=== PATIENT | male | born 1945 | race Caucasian/White ===

== ENCOUNTER → 2018-01-01 | Outpatient (CLI) | payer MEDICARE ==
--- NOTE | 2018-01-01 13:22 | MR ---
EXAMINATION TYPE: MR cervical spine wo con DATE OF EXAM: 01/01/2018 COMPARISON: None HISTORY: cervical disc prolapse TECHNIQUE: Multiplanar, multisequence images of the cervical spine were acquired. C2-C3: No evidence for degenerative disc disease. No disc bulge/herniation or protrusion. No Canal stenosis. Foramina are patent bilaterally. C3-C4: No evidence for degenerative disc disease. No disc bulge/herniation or protrusion. No Canal stenosis. Foramina are patent bilaterally. C4-C5: Loss of disc signal and space. There is uncovertebral joint hypertrophy bilaterally. Very mini mal central disc bulging and facet arthropathy greater on the right. Mild bilateral foraminal encroac hment. No Canal stenosis C5-C6: Degenerative disc disease with posterior spondylosis and uncovertebral joint hypertrophy with facet arthropathy. Bilateral mild foraminal encroachment greater on the left. No discrete herniation or canal stenosis. C6-C7: Degenerative disc disease with uncovertebral joint hypertrophy and facet arthropathy. Mild mansoor tral disc bulging but no canal stenosis. No spinal cord contact. C7-T1: No evidence for degenerative disc disease. No disc bulge/herniation or protrusion. No Canal stenosis. Foramina are patent bilaterally. Cervical segments are intact. There is normal alignment. Cervical spinal cord is of normal signal. Craniovertebral junction relationships are within normal limits. IMPRESSION: 1. Multilevel degenerative disc disease, cervical spondylosis with facet arthropathy and hypertrophy of the uncovertebral joints. This results in multilevel mild foraminal encroachment as discussed abov e with no discrete disc herniation or canal stenosis. 2. Minimal disc bulging as discussed above.
== END | disposition home or self-care (01) ==
LOC: RADMRIMAIN 12:36
PROVIDERS: ATTEND Specialist
DX: M50.221 Other cervical disc displacement at C4-C5 level (principal); M50.322 Other cervical disc degeneration at C5-C6 level; M47.812 Spondylosis without myelopathy or radiculopathy, cervical region; M46.92 Unspecified inflammatory spondylopathy, cervical region
CPT/HCPCS: 72141

== ENCOUNTER 2018-03-28 14:05 | Emergency (ER) | payer MEDICARE ==
[2018-03-28 15:59] VITALS: RESP 18; TEMP 98.3
[2018-03-28 17:20] VITALS: BP 154/77; PULSE 106
--- NOTE | 2018-03-28 17:30 | ED ---
General Adult HPI - General Chief complaint: Recheck/Abnormal Lab/Rx Stated complaint: Chronic body pain, usually goes to pain clinic Time Seen by Provider: 03/28/18 17:17 Source: patient, RN notes reviewed Mode of arrival: ambulatory Limitations: no limitations - History of Present Illness Initial comments: Patient is a 72 year old male with complaint of chronic pain and requesting a refill on [place]. Denies any fever or chills, nausea or vomiting, chest pain, shortness of breath, abdominal pain, headache or visual changes, or any other complaints. - Related Data Home Medications Medication Instructions Recorded Confirmed amLODIPine BESYLATE [Norvasc] 10 mg PO DAILY 11/04/13 08/02/14 Atorvastatin [Lipitor] 20 mg PO DAILY 04/01/14 08/02/14 Diazepam 10 mg PO Q4-6H PRN 04/01/14 08/02/14 Loratadine-Pseudoeph 10-240 mg 1 each PO DAILY 08/02/14 08/02/14 [Claritin-D 24 Hr] Previous Rx's Medication Instructions Recorded Hydrocodone/Acetaminophen 1 each PO Q6H #20 tablet 11/04/13 [Hydrocodone/Acetaminophen 10-325] Ibuprofen [Motrin] 800 mg PO Q8HR PRN #30 tab 08/02/14 Allergies Allergy/AdvReac Type Severity Reaction Status Date / Time No Known Allergies Allergy Verified 03/28/18 15:59 Review of Systems ROS Statement: Those systems with pertinent positive or pertinent negative responses have been documented in the HPI. ROS Other: All systems not noted in ROS Statement are negative. Past Medical History Past Medical History: Hyperlipidemia, Hypertension, Osteoarthritis (OA) Additional Past Medical History / Comment(s): chronic pain, LEFT KNEE INFECTION History of Any Multi-Drug Resistant Organisms: None Reported Past Surgical History: Back Surgery Additional Past Surgical History / Comment(s): RIGHT RIB REMOVED, nose surgery Past Psychological History: No Psychological Hx Reported Smoking Status: Never smoker Past Alcohol Use History: None Reported Past Drug Use History: None Reported General Exam Limitations: no limitations General appearance: alert, in no apparent distress Head exam: Present: atraumatic, normocephalic Eye exam: Present: normal appearance Respiratory exam: Present: normal lung sounds bilaterally Cardiovascular Exam: Present: regular rate, normal rhythm Neurological exam: Present: alert, oriented X3, normal gait Psychiatric exam: Present: normal affect, normal mood Course Vital Signs 03/28/18 03/28/18 15:57 17:00 Temperature 98.3 F Pulse Rate 116 H 106 H Respiratory 18 18 Rate Blood Pressure 156/85 154/77 O2 Sat by Pulse 96 96 Oximetry Medical Decision Making - Medical Decision Making Patient was instructed to follow up with his PCP or a pain clinic for his pain medication. Case discussed in detail with attending physician Dr. Dias. Disposition Clinical Impression: Encounter for medication refill Disposition: HOME SELF-CARE Condition: Good Instructions: Medicine Refill (ED) Additional Instructions: Please follow up with your PCP or pain clinic for refill of your chronic pain medication. Return to the ER with any concerns. Is patient prescribed a controlled substance at d/c from ED?: No Referrals: Justin Toure MD [Primary Care Provider] - 1-2 days Time of Disposition: 17:30
== END 2018-03-28 17:38 | disposition home or self-care (01) ==
LOC: EC 14:05
DX: Z76.0 Encounter for issue of repeat prescription (principal); G89.29 Other chronic pain; E78.5 Hyperlipidemia, unspecified; I10 Essential (primary) hypertension; Z79.899 Other long term (current) drug therapy
CPT/HCPCS: 99283

== ENCOUNTER 2018-03-30 10:14 | Emergency (ER) | payer MEDICARE ==
[2018-03-30 10:19] VITALS: BP 111/66; PULSE 88; RESP 20; TEMP 97.9
[2018-03-30] MEDS ORDERED: DEXAMETHASONE SOD PHOSPHATE 10 MG/ML 1 ML VIAL IM STA (10:38)
--- NOTE | 2018-03-30 10:43 | ED ---
General Adult HPI - General Chief complaint: Weakness Stated complaint: Can't walk/pain all over Time Seen by Provider: 03/30/18 10:20 Source: patient, RN notes reviewed, old records reviewed Mode of arrival: wheelchair Limitations: no limitations - History of Present Illness Initial comments: 72-year-old male presenting for medication refill, chronic pain. Patient has pain bilateral shoulders, neck, bilateral hips and knees. Since is unchanged from baseline. No recent trauma. No fever or chills. Patient was previously prescribed [place] 10 mg 3 times daily, this prescription ran out 6 weeks ago. He was also receiving physical therapy and the location where he was receiving this therapy has closed down. He's been completely out of pain medications for 6 weeks. He did attempt to contact his primary care physician was not in the office today. Patient states the previously steroid injections has significantly helped his pain. No change to her chronic baseline. - Related Data Home Medications Medication Instructions Recorded Confirmed Diazepam 10 mg PO BID 04/01/14 03/30/18 Atorvastatin [Lipitor] 40 mg PO HS 03/30/18 03/30/18 Citalopram Hydrobromide [CeleXA] 40 mg PO DAILY 03/30/18 03/30/18 Hydrocodone/Acetaminophen 1 tab PO Q6H PRN 03/30/18 03/30/18 [Hydrocodone/Acetaminophen 10-325] Lisinopril 40 mg PO DAILY 03/30/18 03/30/18 Previous Rx's Medication Instructions Recorded HYDROcodone/APAP 5-325MG [[place] 1 tab PO Q6HR PRN #12 tab 03/30/18 5-325] Allergies Allergy/AdvReac Type Severity Reaction Status Date / Time No Known Allergies Allergy Verified 03/30/18 10:28 Review of Systems ROS Statement: Those systems with pertinent positive or pertinent negative responses have been documented in the HPI. ROS Other: All systems not noted in ROS Statement are negative. Past Medical History Past Medical History: Hyperlipidemia, Hypertension, Osteoarthritis (OA) Additional Past Medical History / Comment(s): chronic pain, LEFT KNEE INFECTION History of Any Multi-Drug Resistant Organisms: None Reported Past Surgical History: Back Surgery Additional Past Surgical History / Comment(s): RIGHT RIB REMOVED, nose surgery Past Psychological History: No Psychological Hx Reported Smoking Status: Never smoker Past Alcohol Use History: None Reported Past Drug Use History: None Reported General Exam Limitations: no limitations General appearance: alert, in no apparent distress Head exam: Present: atraumatic, normocephalic Eye exam: Present: normal appearance, PERRL, EOMI ENT exam: Present: normal exam, mucous membranes moist Neck exam: Present: normal inspection. Absent: tenderness, meningismus Respiratory exam: Present: normal lung sounds bilaterally. Absent: respiratory distress, wheezes Cardiovascular Exam: Present: regular rate, normal rhythm GI/Abdominal exam: Present: soft. Absent: distended, tenderness Extremities exam: Present: normal inspection, normal capillary refill. Absent: pedal edema Neurological exam: Present: alert, oriented X3, CN II-XII intact. Absent: motor sensory deficit Psychiatric exam: Present: normal affect, normal mood Skin exam: Present: warm, dry, intact. Absent: cyanosis, diaphoretic Course Vital Signs 03/30/18 10:17 Temperature 97.9 F Pulse Rate 88 Respiratory 20 Rate Blood Pressure 111/66 O2 Sat by Pulse 98 Oximetry Medical Decision Making - Medical Decision Making 72-year-old presenting with chronic pain complaints, no injuries, no changes to baseline. Patient requesting steroid shot and he fell to his 10 mg [place] as. I will not refill 10 mg [place] as as I do not know this patient, will give him 3 days of 5 mg [place] as which she will have to make last until he can follow with his primary care physician. Disposition Clinical Impression: Encounter for medication refill, Chronic pain Disposition: HOME SELF-CARE Condition: Good Instructions: Pain Management (ED), Safe Use of Narcotics (ED) Prescriptions: HYDROcodone/APAP 5-325MG [[place] 5-325] 1 tab PO Q6HR PRN #12 tab PRN Reason: Pain Is patient prescribed a controlled substance at d/c from ED?: Yes When asked, does pt state using other controlled substances?: No If prescribed controlled substance>3 days was MAPS reviewed?: Prescribed <3 Days If opioid is for acute pain is fill amount 7 days or less?: Yes If Rx opioid, was Start Talking consent form obtained?: Yes Referrals: Justin Toure MD [Primary Care Provider] - 1-2 days Time of Disposition: 10:42
== END 2018-03-30 10:58 | disposition home or self-care (01) ==
LOC: EC 10:14
DX: G89.29 Other chronic pain (principal); Z76.0 Encounter for issue of repeat prescription; M25.511 Pain in right shoulder; M25.512 Pain in left shoulder; M54.2 Cervicalgia; M25.551 Pain in right hip; M25.552 Pain in left hip; M25.561 Pain in right knee; M25.562 Pain in left knee; E78.5 Hyperlipidemia, unspecified; I10 Essential (primary) hypertension; Z79.899 Other long term (current) drug therapy
CPT/HCPCS: 99285; 96372; J1100

== ENCOUNTER → 2018-04-05 | Outpatient (CLI) | payer MEDICARE ==
[2018-04-05 14:08] VITALS: BP 109/76; PULSE 105; RESP 16
--- NOTE | 2018-04-05 15:13 | P.PAINCN ---
History of Present Illness - Reason for Consult Consult date: 04/05/18 - History of Present Illness This is 72 years old male with a chronic history of severe neck pain and low back pain, and he had bilateral knee pain, patient being managed at different pain clinic but the pain clinic was shutdown, patient was getting pain medication [place] 10/325 every 8 hours, and he was getting injection in his neck and low back, and he was able to function, [facility], but since he stopped taking his pain medication he feels his pain is severe localized in the neck area radiated to the upper extremity and he has severe low back pain, currently he is ambulating without difficulty, because of the intensity of the pain, he denies any fever or night sweats, he denies any change in the bowel movement or urination, intensity of the pain 8/10 increased to 10 over 10 Past Medical History Past Medical History: Hyperlipidemia, Hypertension, Osteoarthritis (OA) Additional Past Medical History / Comment(s): chronic pain, LEFT KNEE INFECTION History of Any Multi-Drug Resistant Organisms: None Reported Past Surgical History: Back Surgery Additional Past Surgical History / Comment(s): RIGHT RIB REMOVED, nose surgery Past Psychological History: No Psychological Hx Reported Smoking Status: Never smoker Past Alcohol Use History: None Reported Past Drug Use History: None Reported Medications and Allergies Home Medications Medication Instructions Recorded Confirmed Type Diazepam 10 mg PO TID 04/01/14 04/05/18 History Atorvastatin [Lipitor] 40 mg PO HS 03/30/18 04/05/18 History Citalopram Hydrobromide [CeleXA] 40 mg PO DAILY 03/30/18 04/05/18 History HYDROcodone/APAP 5-325MG [[place] 1 tab PO Q6HR PRN #12 tab 03/30/18 04/05/18 Rx 5-325] Hydrocodone/Acetaminophen 1 tab PO Q6H PRN 03/30/18 04/05/18 History [Hydrocodone/Acetaminophen 10-325] Lisinopril 40 mg PO DAILY 03/30/18 04/05/18 History Allergies Allergy/AdvReac Type Severity Reaction Status Date / Time No Known Allergies Allergy Verified 04/05/18 13:54 Physical Exam Vitals: Vital Signs Pulse Resp BP Pulse Ox 04/05/18 13:58 105 H 16 109/76 105 H Intake and Output 04/05/18 04/05/18 04/05/18 06:59 14:59 22:59 Other: Weight 73.936 kg Social history : not smoker , NO ETOH , NO Illegal drugs use . Review of Systems : 1- Constitutional : no chills , no fever , no night sweats , 2- Ears : no ear discharge , no change in hearing 3-Nose, Mouth ,Throat ; no bleeding gums, no sore throat , no epistaxis , 4-Cardiovascular : Denies chest pain, , no orthopnea , no palpitation 5-Respiratory : Denies cough , no dyspnea , no hemoptysis 6-Gastrointestinal :, no change in bowel habits , no coffee- ground emesis . 7-Genitourinary : No hematuria , no discharge , no incontinence, 8-Musculoskeletal : No gait dysfunction , report low back pain , neck pain and bilateral knee pain , 9- Neurological : no ataxia , no tremor , no sezure , 10-Psychatric , no suicidal ideation no hallucination 11- Endocrine : no cold intolerence , no polyuria , no polydypsia , 12-Hematologic : no easy bleeding , no easy brusing , 13-Allergic / immunology : no angioedema , no wheezing ,no allergic rhinitis 14-Integumentary : no brttle nails , no change hair / nails , no foot/leg ulcers . Physical Examinations : 1-Constitutional : Cooperative , not in acute distress . 2-HEENT : nech ; supple , no Lymphadenopathy , no Thyromegaly , :eyes , no icterus, no photophobia . ENT : , normal oropharynx , no Thrush 3- Respiratory : Chest clear to auscultations Bilaterally , no wheezing 4- Cardiovascular : regular rate and rhythem , S1 , S2 , no S3 , no S4. 5- Gastrointestinal: abdomen soft no tenderness , no organomegally . 6- Genitourinary : Defferred . 7-Integumentary : No cellulitis , no ulcers , normal skin turgor , no cyanotic . 8- neurologic : Cranial nerve II to XII intact , no focal neurological deffecit 9-psychatric : alert , oriented X 3 , appropriate affect , intact judgment and insight . 10-Lymphatic : no Lymphadenopathy. 11- musculoskeltal: abnormal gait Cervical Spine motor stregnth in the deltoid and biceps, normal right side , normal Left side motor stregnth biceps and the wrist extensors normal right side ,normal left side . motor stregnth in the triceps muscle . normal Right side , normal Left side deep tendon reflexes normal at the biceps , normal at Brachioradialis , normal at triceps. positive cervical facet loading test . Lumber spine moter stegnth lower extremities ,thigh and legs 5/5 Right side , 5/5 Left side deep tendon reflexes : normal Knee Jerk , normal ankle Jerk positive lumber facet Loading Test Range of motion of the lumbar spine Flexion 30 degrees, extension 10 degrees strait leg raising test , positive at 30 degree Fabere test positive RT ,and positive LT . Flexion-extension of the right knee associated with severe pain . Results Comments: MRI of the cervical spine and she had surgery 56 cervical degenerative disc disease and cervical spondylosis with facet arthropathy. Computed tomography scan of the lumbar spine L1-2 lumbar fusion and lumbar facet arthropathy Assessment and Plan Plan: Assessment and plan=1-chronic severe neck pain secondary to cervical degenerative disc disease , and cervical spondylosis 2-chronic severe low back pain secondary to lumbar spondylosis. 3-right knee arthralgia. The patient will be given prescription for [place] 10/325 twice a day , patient was given prescription refills from pain clinic at [place] but that clinic was shot down, patient given prescription for 1 month and patient will be referred to Dr. Navas for medication management I explained to the patient that our pain clinic is interventional pain clinic ,and we don't do medication management Patient could benefit from cervical epidural steroid injections,DREW Time with Patient: Greater than 30 PQRS Measure Charge Sheet Measure #130: Documentation of Current Meds in Medical Chart: Patient's medications documented in chart Measure #226: Tobacco Use: Screen & Cessation Intervention: Pt not a tobacco user Measure #111: Pneumonia Vaccination: Pneumococcal vaccine NOT administered or previously given Measure #47: Advance Care Plan: Advance care planning discussed & documented, pt chose/unable to give Measure #412: Opioid Treatment Agreement: No documentation of signed opioid treatment agreement Measure #408: Opioid Therapy Follow-up Evaluation: Patient had NO f/u eval minimum every 3 months during opioid therapy Measure #317: Preventitive Care & Scrn High Bld Press & F/U: Normal blood pressure, f/u not required Measure #128: Body Mass Index (BMI) Screening & Follow-up: BMI documented within normal parameters Measure #131: Pain Assessment & Follow-up: Pain positive & plan documented, Follow-up scheduled Measure #431: Unhealthy Alcohol Use Preventative Care & Scrn: Patient not identified as an unhealthy alcohol user PQRS Narrative: Smoking Status Never smoker Do You Want the Pneumonia No Vaccine AT THIS TIME? Blood Pressure 109/76 Pain Intensity [Bilateral 9 Lower Back] Scale Used Numeric (1 - 10) Hx Alcohol Use (MH) No Home Medications: Ambulatory Orders Diazepam 10 mg PO TID 04/01/14 Atorvastatin [Lipitor] 40 mg PO HS 03/30/18 Citalopram Hydrobromide [CeleXA] 40 mg PO DAILY 03/30/18 HYDROcodone/APAP 5-325MG [[place] 5-325] 1 tab PO Q6HR PRN #12 tab 03/30/18 Hydrocodone/Acetaminophen [Hydrocodone/Acetaminophen 10-325] 1 tab PO Q6H PRN Lisinopril 40 mg PO DAILY 03/30/18
== END | disposition home or self-care (01) ==
LOC: PNWHC3 12:36
PROVIDERS: ATTEND Specialist
DX: G89.29 Other chronic pain (principal); M50.30 Other cervical disc degeneration, unspecified cervical region; M47.812 Spondylosis without myelopathy or radiculopathy, cervical region; M54.16 Radiculopathy, lumbar region; E78.5 Hyperlipidemia, unspecified; I10 Essential (primary) hypertension; M19.90 Unspecified osteoarthritis, unspecified site; Z98.890 Other specified postprocedural states; Z79.891 Long term (current) use of opiate analgesic; Z79.899 Other long term (current) drug therapy
CPT/HCPCS: 99211

== ENCOUNTER 2018-04-17 10:03 | Day surgery (SDC) | payer MEDICARE ==
[2018-04-16 09:09] VITALS: BMI 23.6
[~2018-04-17 10:03] MED LIST: SODIUM CHLORIDE 0.9% 500 ML 500 ML IV SCH
[2018-04-17] MEDS ORDERED: LIDOCAINE 1% 20 ML VIAL (10MG/ML) FOR IV START INTRADERMA ONE (10:20)
[2018-04-17 10:26] VITALS: RESP 16; TEMP 98.2
[2018-04-17] MEDS ORDERED: LACTATED RINGERS 1,000 ML IV ONE (10:38)
--- NOTE | 2018-04-17 11:43 | P.PCN ---
Date of Procedure: 04/17/18 Procedure(s) Performed: . PROCEDURE 1. Cervical epidural steroid injection under fluoroscopic guidance, C7-T1 2. Cervical epidurogram. PREOPERATIVE DIAGNOSIS: 1- Cervical Degenerative Disc Diseases 2-cervical spondylosis with cervical Facet arthropathy without myelopathy POSTOPERATIVE DIAGNOSIS: : 1- Cervical Degenerative Disc Diseases , 2-cervical spondylosis with cervical Facet arthropathy without myelopathy ANESTHESIA: Local anesthesia with lidocaine 1 % , and moderate sedation, with Versed 2 mg and Fentanyl 50 mcg. EBL 0 PROCEDURE INDICATION: The patient with neck pain and radiculitis unresponsive to conservative treatment consents for procedure. PROCEDURE DESCRIPTION / TECHNIQUE: The patient was seen and identified in the preoperative area. Risks, benefits, complications, including but not limited to infections ,bleeding , allergic reactions to the medications ,and not complete pain releife, and alternatives were discussed with the patient, the patient agreed to proceed with the procedure and signed the consent. Patient was taken to the OR and time out was completed. The patient was placed in the prone position on the procedure table. A pillow was placed under the patients chest to increase the cervical interlaminar space. The cervical area was prepped and draped in the usual sterile fashion. Vital signs were closely monitored during the procedure. Conscious sedation was used during the procedure to decrease patients anxiety. Using anterior-posterior fluoroscopy, the C7-T1 interlaminar space was identified and the skin over this site was marked and then infiltrated with 1% lidocaine subcutaneously. Subsequently, a 20-gauge 3-1/2-inch Tuohy epidural needle was inserted and advanced toward the epidural space by means of the `` hanging-drop technique and guided by AP and lateral fluoroscopy. The correct needle position in the epidural space was verified with the injection of 2 mL of the water soluble contrast dye Isovue-200 and observing an excellent epidurogram with the epidural spread of the dye, after negative aspiration for blood and CSF and in the absence of paresthesias. Again after negative aspiration, mixture containing 20 mg Dexamethasone and 2 ml of preservative- free normal saline injected and a washout of epidurogram was seen. Needle was withdrawn intact, skin was cleansed, and bandages were applied. Complications= none. Disposition= patient was placed in supine position and transferred to the recovery room area in stable condition and there was no evidence of upper or lower extremity motor or sensory deficit after the procedure patient was discharged from recovery room after discharge criteria met and home discharge instructions was given by the staff and patient will follow with the pain clinic in 2-4 weeks
[2018-04-17] MEDS ORDERED: IV FLUID CONTINUATION 1,000 ML IV ONE (11:50)
--- NOTE | 2018-04-17 11:54 | FL ---
EXAMINATION TYPE: FL guided pain mgmt statistic DATE OF EXAM: 04/17/2018 CLINICAL HISTORY: Neck pain. TECHNIQUE: Fluoroscopy. COMPARISON: None. FINDINGS: Fluoroscopic guidance was provided during pain relief procedure performed by Dr. Jacobo . A total of 9 seconds of fluoroscopic time was utilized during the procedure and single spot fluoro scopic image is acquired. Single image acquired shows needle localization near cervicothoracic junct ion. IMPRESSION: As Above.
[2018-04-17 12:20] VITALS: BP 126/68; PULSE 80
== END 2018-04-17 12:25 | disposition home or self-care (01) ==
LOC: ORPAIN 10:03
PROVIDERS: ATTEND Specialist
DX: G89.29 Other chronic pain (principal); M50.10 Cervical disc disorder with radiculopathy, unspecified cervical region; M47.22 Other spondylosis with radiculopathy, cervical region; E78.5 Hyperlipidemia, unspecified; I10 Essential (primary) hypertension; M19.90 Unspecified osteoarthritis, unspecified site; Z79.899 Other long term (current) drug therapy
CPT/HCPCS: 62321; J2250; J1100; J3010; Q9966; 99152

== ENCOUNTER 2018-05-02 08:55 | Day surgery (SDC) | payer MEDICARE ==
[2018-05-01 10:08] VITALS: BMI 22.9
[2018-05-02 10:12] VITALS: TEMP 97.1
[2018-05-02] MEDS ORDERED: LACTATED RINGERS 1,000 ML IV ONE (10:15)
--- NOTE | 2018-05-02 10:54 | P.PCN ---
Date of Procedure: 05/02/18 Procedure(s) Performed: . PROCEDURE 1. Cervical epidural steroid injection under fluoroscopic guidance, C7-T1 2. Cervical epidurogram. PREOPERATIVE DIAGNOSIS: 1- Cervical Degenerative Disc Diseases 2-cervical spondylosis with cervical Facet arthropathy without myelopathy POSTOPERATIVE DIAGNOSIS: : 1- Cervical Degenerative Disc Diseases , 2-cervical spondylosis with cervical Facet arthropathy without myelopathy ANESTHESIA: Local anesthesia with lidocaine 1 % , and moderate sedation, with Versed 2 mg and Fentanyl 50 mcg. EBL 0 PROCEDURE INDICATION: The patient with neck pain and radiculitis unresponsive to conservative treatment consents for procedure. PROCEDURE DESCRIPTION / TECHNIQUE: The patient was seen and identified in the preoperative area. Risks, benefits, complications, including but not limited to infections ,bleeding , allergic reactions to the medications ,and not complete pain releife, and alternatives were discussed with the patient, the patient agreed to proceed with the procedure and signed the consent. Patient was taken to the OR and time out was completed. The patient was placed in the prone position on the procedure table. A pillow was placed under the patients chest to increase the cervical interlaminar space. The cervical area was prepped and draped in the usual sterile fashion. Vital signs were closely monitored during the procedure. Conscious sedation was used during the procedure to decrease patients anxiety. Using anterior-posterior fluoroscopy, the C7-T1 interlaminar space was identified and the skin over this site was marked and then infiltrated with 1% lidocaine subcutaneously. Subsequently, a 20-gauge 3-1/2-inch Tuohy epidural needle was inserted and advanced toward the epidural space by means of the `` hanging-drop technique and guided by AP and lateral fluoroscopy. The correct needle position in the epidural space was verified with the injection of 2 mL of the water soluble contrast dye [id number]-200 and observing an excellent epidurogram with the epidural spread of the dye, after negative aspiration for blood and CSF and in the absence of paresthesias. Again after negative aspiration, mixture containing 20 mg Dexamethasone and 2 ml of preservative- free normal saline injected and a washout of epidurogram was seen. Needle was withdrawn intact, skin was cleansed, and bandages were applied. Complications= none. Disposition= patient was placed in supine position and transferred to the recovery room area in stable condition and there was no evidence of upper or lower extremity motor or sensory deficit after the procedure patient was discharged from recovery room after discharge criteria met and home discharge instructions was given by the staff and patient will follow with the pain clinic in 2-4 weeks
[2018-05-02] MEDS ORDERED: FLUMAZENIL 0.1 MG/ML 5 ML VIAL IVP PRN (11:22)
[2018-05-02 11:54] VITALS: BP 121/71; PULSE 77; RESP 18
[2018-05-02] MEDS ORDERED: IV FLUID CONTINUATION 1,000 ML IV ONE (12:06)
--- NOTE | 2018-05-02 13:44 | FL ---
EXAMINATION TYPE: FL guided pain mgmt statistic DATE OF EXAM: 05/02/2018 FLUOROSCOPY Fluoroscopy time of 1 seconds was used during cervical epidural injection. 1 image/s document/s the procedure.
== END 2018-05-02 12:22 | disposition home or self-care (01) ==
LOC: ORPAIN 08:55
PROVIDERS: ATTEND Specialist
DX: M50.30 Other cervical disc degeneration, unspecified cervical region (principal); M47.812 Spondylosis without myelopathy or radiculopathy, cervical region
CPT/HCPCS: 62321; 99152; J2250; J1100; J3010; Q9966

== ENCOUNTER → 2018-05-28 | Outpatient (CLI) | payer MEDICARE ==
[2018-05-28 13:32] VITALS: BP 129/79; PULSE 74; RESP 16
--- NOTE | 2018-05-28 14:08 | P.PN ---
Subjective Progress Note Date: 05/28/18 This is a 72-year-old gentleman with history of chronic neck pain due to cervical spondylosis without myelopathy. He also has been in the lower back pain due to previous multiple back surgeries that were complicated by infection. He had 2 cervical epidural steroid injection which gave him 5-10 days of pain relief however recently he was placed on steroid Dosepak by a solar systems designer and he denies having any pain at this point. He still has 2 more weeks ago on oral steroids. This pain is mostly in the neck area with radiation only to the shoulders. This pain gets worse by movement of the cervical spine especially with rotation. The patient used to be on [place] for many years until he stopped using it in February of last year. Today, pt denies new-onset weakness, bowel/bladder incontinence, or any other signs or symptoms of cauda equina syndrome. There are no signs of acute intoxication, and no indications of medication diversion or overuse. In addition to above, 13-point review of systems is also negative for chest pain , shortness of breath, changes in vision, changes in hearing, new onset weakness , abdominal pain, diarrhea, extreme fatigue, malaise, fever, skin changes, homicidal or suicidal ideation, or bowel or bladder incontinence. Vital Signs: Reviewed in EMR Gen: AAOx3, NAD HEENT: PERRLA,hearing grossly normal Pulm: resp unlabored,CTA Heart:S1,S2, No Mur Neuro exam of the upper extremities showed normal and symmetrical biceps reflexes, absent triceps reflexes, normal and symmetrical brachioradialis reflex. Neck: supple, trachea midline Neuro exam of the lower extremities: Tenderness in the paravertebral musculature: Positive in the cervical area Neuro: CN II-XII grossly intact, Imaging: Reviewed in EMR/chart Assessment: Cervical spondylosis without myelopathy Osteoarthritis Plan: 1. Explanation: Opioid and psychological risk scores were reviewed. Diagnoses , prognoses, and multiple treatment options including but not limited to physical therapy, interventional therapies, adjuvant medical therapies, narcotic medication therapies, and surgery were discussed with the patient and all questions were answered to the patient's satisfaction. 2. Opioid agreement: We do not prescribe opioids 3. Counseling: The patient was counseled extensively on SMOKING CESSATION, BODY MASS INDEX, EXERCISE. Specifically, the patient was instructed regarding the importance of smoking cessation, obesity, and exercise in the context of both chronic pain and overall health. 4. Procedures: The patient may benefit from getting a diagnostic cervical medial branch block in the right side since this is the most painful side 5. Consultations: None 6. Investigations: None 7. Medications: None 8. Disposition: Return to clinic as needed 9. Maps were reviewed and were appropriate. PQRS measures: 1-Patient's medications are documented in the chart. 2-Tobacco use is negative, counseling given 3-Patient has not had a pneumococcal vaccine. 4-Advanced care planning discussed, patient unable to give 5-Opioid contract signed with the patient. 6-Pain positive, follow-up visit or procedure scheduled 7-Patient's blood pressure measured and documented within normal limits. 8-Patient's weight was measured, and body mass index ABOVE the normal limits, and counseling was done. Patient instructed to follow up with PCP. 9-Patient WAS NOT identified as an unhealthy alcohol user. Objective - Vital Signs Vital signs: Vital Signs Temp Pulse 74 05/28/18 13:30 Resp 16 05/28/18 13:30 BP 129/79 05/28/18 13:30 Pulse Ox 97 05/28/18 13:30 Intake & Output 05/27/18 05/28/18 05/28/18 18:59 06:59 18:59 Weight 74.843 kg
== END | disposition home or self-care (01) ==
LOC: PNWHC3 13:18
PROVIDERS: ATTEND Anesthesiology
DX: M47.812 Spondylosis without myelopathy or radiculopathy, cervical region (principal)
CPT/HCPCS: 99211

== ENCOUNTER → 2018-10-22 | Outpatient (CLI) | payer MEDICARE ==
--- NOTE | 2018-10-22 23:56 | CT ---
EXAMINATION TYPE: CT shoulder RT wo con DATE OF EXAM: 10/22/2018 COMPARISON: None HISTORY: 72-year-old male with Pain TECHNIQUE: Contiguous axial scanning of the right shoulder without IV contrast. Coronal and sagittal reconstructions performed. CT DLP: 372 mGycm Automated exposure control for dose reduction was used. FINDINGS: Dictation axial images include the upper chest and left shoulder. There is subchondral cystic change within both the glenoid and in the anterior greater tuberosity suggesting underlying glenoid humeral joint degenerative change and rotator cuff tendinopathy. Mild degenerative joint space narrowing of t he partially visualized left AC joint. On the right, there is moderate degenerative joint space narrowing at the AC joint with mild marginal spurring. Mild bony irregularity along the superior facet of the greater tuberosity and along the lesser tubero sity as well. The glenohumeral joint itself appears intact with mild inferior humeral head spurring. Overall mainta ined glenoid bone stalk with relatively neutral glenoid version. No significant glenohumeral joint effusion. No evidence for acute fracture, subluxation, dislocation. Preserved bulk of the rotator cuff musculature. IMPRESSION: 1. MILD GLENOHUMERAL JOINT AND AC JOINT OA. 2. SOME MILD BONY IRREGULARITY LESSER TUBEROSITY AND SUPERIOR FACET OF THE GREATER TUBEROSITY SUGGEST CHRONIC ROTATOR CUFF TENDINOPATHY. 3. NO ROTATOR CUFF MUSCLE ATROPHY OR VOLUME LOSS TO SUGGEST ANY SIGNIFICANT ROTATOR CUFF TEAR.
== END | disposition home or self-care (01) ==
LOC: RADCTMAIN 10:24
PROVIDERS: ATTEND Family Medicine
DX: M19.011 Primary osteoarthritis, right shoulder (principal)

== ENCOUNTER → 2018-10-25 | Outpatient (CLI) | payer MEDICARE ==
--- NOTE | 2018-10-25 13:45 | CT ---
EXAMINATION TYPE: CT shoulder LT wo con DATE OF EXAM: 10/25/2018 COMPARISON: None. HISTORY: Chronic pain. Pain in left shoulder. CT DLP: 253.3 mGycm Automated exposure control for dose reduction was used. FINDINGS: Localizer shows partial visualization of surgical change in the lower thoracic spine. There is moderate narrowing most prominent superiorly in the glenohumeral joint. There is mild to mod erate size spur from the inferior medial aspect of the humeral head. Prominent subchondral cyst suspe cted in the osseous glenoid axial image 22. No significant effusion is seen. Neutral glenoid version noted. Moderate narrowing of temporomandibular joint is seen with underlying fat plane maintained. Distal ac romion morphology is unremarkable. No significant spurring is seen. Rotator cuff muscle bulk is preserved. Visualized ribs are intact. Visualized left lung is clear. IMPRESSION: Moderate degenerative changes as detailed above. No rotator cuff muscular atrophy noted.
== END | disposition home or self-care (01) ==
LOC: RADCTMAIN 13:09
PROVIDERS: ATTEND Family Medicine
DX: M19.012 Primary osteoarthritis, left shoulder (principal); G89.29 Other chronic pain

== ENCOUNTER → 2019-04-16 | Outpatient (CLI) | payer MEDICARE ==
--- NOTE | 2019-04-16 15:38 | XR ---
EXAMINATION TYPE: XR shoulder complete LT DATE OF EXAM: 04/16/2019 CLINICAL HISTORY: Left shoulder pain for 3 months with no known injury TECHNIQUE: Three views of the left shoulder are obtained. COMPARISON: None. FINDINGS: There is no acute fracture/dislocation evident in the left shoulder. The acromioclavicula r and glenohumeral joint spaces appear aligned however there is joint space narrowing of the acromioc lavicular and glenohumeral joints. The visualized ribs are intact and unremarkable. Partial visualiz ation of surgical fusion of the thoracic spine. IMPRESSION: There is no acute fracture or dislocation in the left shoulder. Mild glenohumeral and ac romioclavicular arthropathy and left.
== END | disposition home or self-care (01) ==
LOC: RADXRYALE 15:11
PROVIDERS: ATTEND Family Medicine
DX: M19.012 Primary osteoarthritis, left shoulder (principal)

== ENCOUNTER → 2020-07-02 | Outpatient (CLI) | payer MEDICARE ==
[2020-07-03 20:34] LABS: Basophils # (A) 0.04 X 10*3/uL (0.00-0.10); Basophils % (A) 0.7 %; Eosinophils % (A) 3.4 %; HCT 40.2 % (39.6-50.0); HGB 12.6 g/dL (13.0-17.0); Lymphocytes # (A) 1.45 X 10*3/uL (0.90-5.00); Lymphocytes % (A) 24.5 %; MCH 30.1 pg (27.0-32.0); MCHC 31.3 g/dL (32.0-37.0); MCV 95.9 fL (80.0-97.0); Mean Platelet Volume 9.2 fL (9.5-12.2); Monocytes # (A) 0.63 X 10*3/uL (0.20-1.00); Monocytes % (A) 10.6 %; Neutrophils # (A) 3.58 X 10*3/uL (1.80-7.70); Neutrophils % (A) 60.3 %; Platelet Count 254 X 10*3/uL (140-440); RBC 4.19 X 10*6/uL (4.40-5.60); RDW 12.8 % (11.5-14.5); WBC 5.93 X 10*3/uL (4.50-10.00)
[2020-07-03 23:30] LABS: African American GFR (CKD) 49.2 (60.0-200.0); Albumin 4.6 g/dL (3.80-4.90); Albumin/Globulin Ratio 1.92 (1.60-3.17); Anion Gap 4.5 mmol/L (4.00-12.00); BUN/Creat Ratio 15.63 Ratio (12.00-20.00); Calcium 9.5 mg/dL (8.7-10.3); Carbon Dioxide 27.5 mmol/L (21.6-31.8); Chol/HDL Ratio 3.44; Globulin 2.4 g/dL (1.6-3.3); LDL Cholesterol,Calculated 80.6 mg/dL (0.0-131.0); Non-African American GFR(CKD) 42.4 (60.0-200.0); Potassium 6.2 mmol/L (3.5-5.5); Total Bilirubin 0.3 mg/dL (0.3-1.2); VLDL Calculation 24.4 mg/dL (5.00-40.00)
== END | disposition home or self-care (01) ==
LOC: LABWHC1 12:00
PROVIDERS: ATTEND Family Medicine
DX: Z01.810 Encounter for preprocedural cardiovascular examination (principal); I10 Essential (primary) hypertension; E78.00 Pure hypercholesterolemia, unspecified
CPT/HCPCS: 36415; 80053; 80061; 85025; 93005

== ENCOUNTER → 2020-07-07 | Outpatient (CLI) | payer MEDICARE ==
[2020-07-08 01:35] LABS: African American GFR (CKD) 53.1 (60.0-200.0); Albumin 4.7 g/dL (3.80-4.90); Albumin/Globulin Ratio 1.81 (1.60-3.17); Anion Gap 9.3 mmol/L (4.00-12.00); BUN/Creat Ratio 12.67 Ratio (12.00-20.00); Calcium 10.4 mg/dL (8.7-10.3); Carbon Dioxide 25.7 mmol/L (21.6-31.8); Globulin 2.6 g/dL (1.6-3.3); Non-African American GFR(CKD) 45.9 (60.0-200.0); Total Bilirubin 0.4 mg/dL (0.3-1.2); Total Protein 7.3 g/dL (6.2-8.2)
== END | disposition home or self-care (01) ==
LOC: LABWHC1 12:05
PROVIDERS: ATTEND Family Medicine
DX: E87.5 Hyperkalemia (principal)
CPT/HCPCS: 36415; 80053

== ENCOUNTER 2021-02-26 09:15 | Emergency (ER) | payer MEDICARE ==
[2021-02-26 09:34] VITALS: BP 121/79; PULSE 98; RESP 18; TEMP 99.1
--- NOTE | 2021-02-26 10:21 | ED ---
General Adult HPI - General Chief complaint: Upper Respiratory Infection Stated complaint: Covid exposure, wants test Time Seen by Provider: 02/26/21 09:18 Source: patient, RN notes reviewed, old records reviewed Mode of arrival: ambulatory Limitations: no limitations - History of Present Illness Initial comments: 75-year-old male presenting for suspected coronavirus infection. Patient has a known positive contact 30s had symptoms for the past 2 days including nasal congestion, cough, and headache. He's had fevers at home. His headache was relieved with Motrin. He was not previously vaccinated against coronavirus. No significant dyspnea. - Related Data Home Medications Medication Instructions Recorded Confirmed Diazepam 10 mg PO TID 04/01/14 05/28/18 Atorvastatin [Lipitor] 40 mg PO HS 03/30/18 05/28/18 Citalopram Hydrobromide [CeleXA] 40 mg PO DAILY 03/30/18 05/28/18 lisinopriL 40 mg PO DAILY 03/30/18 05/28/18 Gabapentin [Neurontin] 1 tab PO TID 05/28/18 05/28/18 methylPREDNISolone [Medrol Dose 1 tab PO DIRECTED 05/28/18 05/28/18 Pack] Allergies Allergy/AdvReac Type Severity Reaction Status Date / Time No Known Allergies Allergy Verified 02/26/21 09:30 Review of Systems ROS Statement: Those systems with pertinent positive or pertinent negative responses have been documented in the HPI. ROS Other: All systems not noted in ROS Statement are negative. Past Medical History Past Medical History: Hyperlipidemia, Hypertension, Osteoarthritis (OA) Additional Past Medical History / Comment(s): chronic pain, LEFT KNEE INFECTION History of Any Multi-Drug Resistant Organisms: None Reported Past Surgical History: Back Surgery, Orthopedic Surgery Additional Past Surgical History / Comment(s): PAIN CLINIC PROCEDURE, RIGHT RIB REMOVED, nose surgery, L foot Past Anesthesia/Blood Transfusion Reactions: No Reported Reaction Past Psychological History: No Psychological Hx Reported Smoking Status: Never smoker Past Alcohol Use History: None Reported Past Drug Use History: None Reported - Past Family History Mother Family Medical History: Cancer Brother(s) Family Medical History: Cancer General Exam Limitations: no limitations General appearance: alert, in no apparent distress Head exam: Present: atraumatic, normocephalic Eye exam: Present: normal appearance, PERRL ENT exam: Present: mucous membranes dry Neck exam: Present: normal inspection. Absent: tenderness, meningismus Respiratory exam: Present: normal lung sounds bilaterally. Absent: respiratory distress, wheezes, rales Cardiovascular Exam: Present: regular rate, normal rhythm GI/Abdominal exam: Present: soft. Absent: distended, tenderness, guarding, rebound Extremities exam: Present: normal inspection, normal capillary refill. Absent: pedal edema Neurological exam: Present: alert, oriented X3, CN II-XII intact, normal gait. Absent: motor sensory deficit Psychiatric exam: Present: normal affect, normal mood Skin exam: Present: warm, dry, intact. Absent: cyanosis, diaphoretic Course Vital Signs 02/26/21 09:31 Temperature 99.1 F Pulse Rate 98 Respiratory 18 Rate Blood Pressure 121/79 O2 Sat by Pulse 97 Oximetry Medical Decision Making - Medical Decision Making 75-year-old male with coronavirus symptoms, he does test positive. He is transfused monoclonal antibodies emergency department. He is given strict return parameters. He will take vitamin C, vitamin D, and zinc at home. He will monitor his breathing and return as needed. He will follow with his primary care physician. - Lab Data Lab Results 02/26/21 Range/Units 10:06 Coronavirus (PCR) Detected A (Not Detectd) Disposition Clinical Impression: COVID-19 Disposition: HOME SELF-CARE Condition: Good Instructions (If sedation given, give patient instructions): Coronavirus Disease 2019 (COVID-19) Is patient prescribed a controlled substance at d/c from ED?: No Referrals: Justin Toure MD [Primary Care Provider] - 1-2 days
[2021-02-26] MEDS ORDERED: SODIUM CHLORIDE 0.9% 50 ML IVPB ONE (11:00)
[2021-02-26] MEDS ORDERED: CASIRIVIMAB (REGN10933) (EUA) 600 MG, IMDEVIMAB (REGN10987) (EUA) 600 MG in SODIUM CHLO... IVPB ONE (11:00)
== END 2021-02-26 13:57 | disposition home or self-care (01) ==
LOC: EC 09:15
DX: U07.1 COVID-19 (principal); I10 Essential (primary) hypertension; E78.5 Hyperlipidemia, unspecified; M19.90 Unspecified osteoarthritis, unspecified site; Z79.899 Other long term (current) drug therapy
CPT/HCPCS: 87635; 96365; 99283; Q0243

== ENCOUNTER → 2021-07-01 | Outpatient (CLI) | payer MEDICARE ==
[2021-07-01 18:03] LABS: Basophils # (A) 0.04 X 10*3/uL (0.00-0.10); Basophils % (A) 0.6 %; Eosinophils # (A) 0.23 X 10*3/uL (0.04-0.35); Eosinophils % (A) 3.6 %; HCT 36.5 % (39.6-50.0); HGB 11.5 g/dL (13.0-17.0); Immature Grans, Automated 0.2 %; Lymphocytes # (A) 1.38 X 10*3/uL (0.90-5.00); Lymphocytes % (A) 21.6 %; MCH 29.2 pg (27.0-32.0); MCHC 31.5 g/dL (32.0-37.0); MCV 92.6 fL (80.0-97.0); Monocytes # (A) 0.71 X 10*3/uL (0.20-1.00); Monocytes % (A) 11.1 %; NRBC Per 100 WBC 0 /100 WBCS (0.0-0.0); Neutrophils # (A) 4.03 X 10*3/uL (1.80-7.70); Neutrophils % (A) 62.9 %; Platelet Count 255 X 10*3/uL (140-440); RBC 3.94 X 10*6/uL (4.40-5.60); RDW 13.6 % (11.5-14.5)
[2021-07-01 18:14] LABS: Albumin 4.2 g/dL (3.8-4.9); Albumin/Globulin Ratio 1.64 (1.60-3.17); Anion Gap 9.6 mmol/L (10.00-18.00); BUN/Creat Ratio 14.55 Ratio (12.00-20.00); Blood Urea Nitrogen 21.1 mg/dL (9.0-27.0); Calcium 9.4 mg/dL (8.7-10.3); Carbon Dioxide 19.7 mmol/L (20.0-27.5); Globulin 2.6 g/dL (1.6-3.3); Non-African American GFR(CKD) 47.4 (60.0-200.0); Potassium 5.5 mmol/L (3.5-5.5); Total Bilirubin 0.3 mg/dL (0.30-1.20); Total Protein 6.8 g/dL (6.2-8.2)
== END | disposition home or self-care (01) ==
LOC: LABWHC1 12:39
PROVIDERS: ATTEND Family Medicine
DX: Z01.810 Encounter for preprocedural cardiovascular examination (principal); I10 Essential (primary) hypertension; E78.00 Pure hypercholesterolemia, unspecified
CPT/HCPCS: 36415; 80053; 85025

== ENCOUNTER 2021-07-17 22:25 | Emergency (ER) | payer MEDICARE ==
[2021-07-17 23:21] VITALS: RESP 18
[2021-07-18] MEDS ORDERED: SODIUM CHLORIDE 0.9% 1,000 ML IV STA (00:10)
--- NOTE | 2021-07-18 01:06 | US ---
EXAMINATION TYPE: US venous doppler duplex LE RT DATE OF EXAM: 07/18/2021 12:07 AM COMPARISON: NONE CLINICAL HISTORY: swelling, redness, recent surgery. Right leg pain and swelling following knee repla cement, patient on blood thinners SIDE PERFORMED: Right TECHNIQUE: The lower extremity deep venous system is examined utilizing real time linear array sonog [employer] with graded compression, doppler sonography and color-flow sonography. VESSELS IMAGED: Common Femoral Vein Deep Femoral Vein Greater Saphenous Vein * Femoral Vein Popliteal Vein Small Saphenous Vein * Proximal Calf Veins (* superficial vessels) Right Leg: Appears negative for DVT IMPRESSION: No evidence of right leg deep vein thrombosis.
[2021-07-18 01:21] LABS: Basophils % (A) 0 %; Eosinophils # (A) 0.3 k/uL (0-0.7); Eosinophils % (A) 4 %; HCT 32.2 % (39.0-53.0); HGB 10.3 gm/dL (13.0-17.5); Lymphocytes # (A) 1.7 k/uL (1.0-4.8); Lymphocytes % (A) 21 %; MCH 29.7 pg (25.0-35.0); MCHC 31.9 g/dL (31.0-37.0); MCV 93.1 fL (80.0-100.0); Mean Platelet Volume 6.8; Monocytes # (A) 0.7 k/uL (0-1.0); Monocytes % (A) 9 %; Neutrophils % (A) 64 %; Platelet Count 322 k/uL (150-450); RBC 3.46 m/uL (4.30-5.90); RDW 13.3 % (11.5-15.5); WBC 7.9 k/uL (3.8-10.6)
[2021-07-18 01:35] LABS: Albumin 3.5 g/dL (3.5-5.0); Potassium 5.3 mmol/L (3.5-5.1); Total Bilirubin 0.8 mg/dL (0.2-1.3); Total Protein 6.5 g/dL (6.3-8.2)
[2021-07-18 02:24] VITALS: BP 134/69; PULSE 85; TEMP 98.9
--- NOTE | 2021-07-18 02:34 | XR ---
EXAMINATION TYPE: XR chest 2V DATE OF EXAM: 07/18/2021 COMPARISON: NONE HISTORY: Fever TECHNIQUE: 2 views FINDINGS: Heart and mediastinum are normal. There is some small patches of linear density in the mid and lower lung arce. There is paraspinal rods fusing posteriorly the thoracolumbar junction. There are no hilar masses. There is no pleural effusion. IMPRESSION: Small patchy areas of subsegmental atelectasis similar to old exam. No pulmonary consolid ation or heart failure.
--- NOTE | 2021-07-18 02:44 | ED ---
General Adult HPI - General Chief complaint: Extremity Problem,Nontraumatic Stated complaint: Post-op Pain Right Knee Time Seen by Provider: 07/17/21 23:58 Source: patient, RN notes reviewed, old records reviewed Mode of arrival: wheelchair - History of Present Illness Initial comments: 75-year-old male presenting for evaluation of fever. Patient is 5 days status post right total knee which was performed at [facility]. He developed chills on the first postoperative day. He states that he did do quite a bit of exercising and believes he may have overworked his right leg. He noted some swelling in the knee. He denies cough. Denies congestion. Denies sore throat. Denies dysuria. Denies abdominal pain. He was sent in for evaluation of possible DVT in the leg. His orthopedic surgeon was aware of his symptoms. - Related Data Home Medications Medication Instructions Recorded Confirmed Diazepam 10 mg PO TID 04/01/14 02/26/21 Atorvastatin [Lipitor] 40 mg PO DAILY 03/30/18 02/26/21 Citalopram Hydrobromide [CeleXA] 40 mg PO DAILY 03/30/18 02/26/21 lisinopriL 40 mg PO DAILY 03/30/18 02/26/21 HYDROcodone/APAP 10-325MG [[place] 1 tab PO QID 02/26/21 02/26/21 10-325] Ibuprofen [Motrin] 800 mg PO BID PRN 02/26/21 02/26/21 Allergies Allergy/AdvReac Type Severity Reaction Status Date / Time No Known Allergies Allergy Verified 07/17/21 23:21 Review of Systems ROS Statement: Those systems with pertinent positive or pertinent negative responses have been documented in the HPI. ROS Other: All systems not noted in ROS Statement are negative. Past Medical History Past Medical History: Hyperlipidemia, Hypertension, Osteoarthritis (OA) Additional Past Medical History / Comment(s): chronic pain, LEFT KNEE INFECTION History of Any Multi-Drug Resistant Organisms: None Reported Past Surgical History: Back Surgery, Orthopedic Surgery Additional Past Surgical History / Comment(s): PAIN CLINIC PROCEDURE, RIGHT RIB REMOVED, nose surgery, L foot, right knee replacment Past Anesthesia/Blood Transfusion Reactions: No Reported Reaction Past Psychological History: No Psychological Hx Reported Smoking Status: Never smoker Past Alcohol Use History: None Reported Past Drug Use History: None Reported - Past Family History Mother Family Medical History: Cancer Brother(s) Family Medical History: Cancer General Exam General appearance: alert, in no apparent distress Head exam: Present: atraumatic, normocephalic Eye exam: Present: normal appearance, PERRL ENT exam: Present: mucous membranes dry Neck exam: Present: normal inspection. Absent: tenderness, meningismus Respiratory exam: Present: normal lung sounds bilaterally, respiratory distress Cardiovascular Exam: Present: regular rate, normal rhythm GI/Abdominal exam: Present: soft. Absent: distended, tenderness Extremities exam: Present: other (There is mild joint swelling of the right knee. No calf tenderness. No erythema or skin changes.) Course Vital Signs 07/17/21 07/18/21 23:15 02:21 Temperature 98.7 F 98.9 F Pulse Rate 92 85 Respiratory 18 18 Rate Blood Pressure 108/64 134/69 O2 Sat by Pulse 95 97 Oximetry - Reevaluation(s) Reevaluation #1: 07/18/21 0230 pt requesting discharge. Medical Decision Making - Medical Decision Making 75-year-old male presenting with fever. He is afebrile in the emergency department. I did obtain an ultrasound which is negative for DVT in the right leg. Chest x-ray showing atelectasis without large focal pneumonia. He has a normal white blood cell count 7.9 without shift. He is anemic at 10.3. He has a creatinine of 1.78 which is slightly elevated above baseline. His influenza A and coronavirus testing are negative. I did order a urinalysis however the patient went to the bathroom and did not obtain a sample and denies any symptoms. He is informed of the testing results and is eager for discharge. He remains afebrile while in the emergency department. He will inform his orthopedic surgeon of his fever. He will monitor both blood pressure and temperature at home. - Lab Data Result diagrams: 07/18/21 01:10 07/18/21 01:10 Lab Results 07/18/21 07/18/21 07/18/21 Range/Units 01:10 01:10 01:10 WBC 7.9 (3.8-10.6) k/uL RBC 3.46 L (4.30-5.90) m/uL Hgb 10.3 L (13.0-17.5) gm/dL Hct 32.2 L (39.0-53.0) % MCV 93.1 (80.0-100.0) fL MCH 29.7 (25.0-35.0) pg MCHC 31.9 (31.0-37.0) g/dL RDW 13.3 (11.5-15.5) % Plt Count 322 (150-450) k/uL MPV 6.8 Neutrophils % 64 % Lymphocytes % 21 % Monocytes % 9 % Eosinophils % 4 % Basophils % 0 % Neutrophils # 5.0 (1.3-7.7) k/uL Lymphocytes # 1.7 (1.0-4.8) k/uL Monocytes # 0.7 (0-1.0) k/uL Eosinophils # 0.3 (0-0.7) k/uL Basophils # 0.0 (0-0.2) k/uL Sodium 135 L (137-145) mmol/L Potassium 5.3 H (3.5-5.1) mmol/L Chloride 102 (98-107) mmol/L Carbon Dioxide 25 (22-30) mmol/L Anion Gap 8 mmol/L BUN 31 H (9-20) mg/dL Creatinine 1.78 H (0.66-1.25) mg/dL Est GFR (CKD-EPI)AfAm 43 (>60 ml/min/1.73 sqM) Est GFR (CKD-EPI)NonAf 37 (>60 ml/min/1.73 sqM) Glucose 100 H (74-99) mg/dL Plasma Lactic Acid [place] 0.7 (0.7-2.0) mmol/L Calcium 9.0 (8.4-10.2) mg/dL Total Bilirubin 0.8 (0.2-1.3) mg/dL AST 46 (17-59) U/L ALT 23 (4-49) U/L Alkaline Phosphatase 98 (38-126) U/L Total Protein 6.5 (6.3-8.2) g/dL Albumin 3.5 (3.5-5.0) g/dL Coronavirus (PCR) (Not Detectd) Influenza Type A RNA (Not Detectd) Influenza Type B (PCR) (Not Detectd) 07/18/21 07/18/21 Range/Units 01:22 01:22 WBC (3.8-10.6) k/uL RBC (4.30-5.90) m/uL Hgb (13.0-17.5) gm/dL Hct (39.0-53.0) % MCV (80.0-100.0) fL MCH (25.0-35.0) pg MCHC (31.0-37.0) g/dL RDW (11.5-15.5) % Plt Count (150-450) k/uL MPV Neutrophils % % Lymphocytes % % Monocytes % % Eosinophils % % Basophils % % Neutrophils # (1.3-7.7) k/uL Lymphocytes # (1.0-4.8) k/uL Monocytes # (0-1.0) k/uL Eosinophils # (0-0.7) k/uL Basophils # (0-0.2) k/uL Sodium (137-145) mmol/L Potassium (3.5-5.1) mmol/L Chloride (98-107) mmol/L Carbon Dioxide (22-30) mmol/L Anion Gap mmol/L BUN (9-20) mg/dL Creatinine (0.66-1.25) mg/dL Est GFR (CKD-EPI)AfAm (>60 ml/min/1.73 sqM) Est GFR (CKD-EPI)NonAf (>60 ml/min/1.73 sqM) Glucose (74-99) mg/dL Plasma Lactic Acid [place] (0.7-2.0) mmol/L Calcium (8.4-10.2) mg/dL Total Bilirubin (0.2-1.3) mg/dL AST (17-59) U/L ALT (4-49) U/L Alkaline Phosphatase (38-126) U/L Total Protein (6.3-8.2) g/dL Albumin (3.5-5.0) g/dL Coronavirus (PCR) Not Detected (Not Detectd) Influenza Type A RNA Not Detected (Not Detectd) Influenza Type B (PCR) Not Detected (Not Detectd) Disposition Clinical Impression: Fever Disposition: HOME SELF-CARE Condition: Good Instructions (If sedation given, give patient instructions): Fever in Adults (ED) Additional Instructions: Please follow up with orthopedic surgeon on Monday morning. Please return to emergency department with any worsening or changing symptoms. Is patient prescribed a controlled substance at d/c from ED?: No Referrals: Justin Toure MD [Primary Care Provider] - 1-2 days Time of Disposition: 02:44
== END 2021-07-18 03:19 | disposition home or self-care (01) ==
LOC: EC 22:25
DX: R50.9 Fever, unspecified (principal); R22.41 Localized swelling, mass and lump, right lower limb; E78.5 Hyperlipidemia, unspecified; I10 Essential (primary) hypertension; M19.90 Unspecified osteoarthritis, unspecified site; Z20.822 Contact with and (suspected) exposure to COVID-19; Z96.651 Presence of right artificial knee joint
CPT/HCPCS: 36415; 71046; 80053; 83605; 85025; 87040; 87502; 87635; 96360; 99284

== ENCOUNTER 2022-03-28 17:43 | Emergency (ER) | payer MEDICARE ==
[2022-03-28 18:10] VITALS: TEMP 99.5
--- NOTE | 2022-03-28 20:44 | ED ---
General Adult HPI - General Chief complaint: Abdominal Pain Stated complaint: R/O Blood Clot in R. Foot Time Seen by Provider: 03/28/22 20:20 Source: patient Mode of arrival: ambulatory Limitations: no limitations - History of Present Illness Initial comments: Dictation was produced using [employer] dictation software. please excuse any grammatical, word or spelling errors. Chief Complaint: 76-year-old male presents emergency department for right foot pain and left upper quadrant abdominal pain History of Present Illness: Patient is a 76-year-old male who states that he is here to emergency department for 2 complaints. First complaint is his right foot. That said he has had months of right foot pain. He talked to his daughter who is a nurse says that he should be evaluated for possible blood clot in his leg. Denies any calf pain. No posterior knee pain or medial thigh pain. Patient has no history of blood clots. He states that he has pain to his metatarsal heads worse when he steps and moves. Patient also has had 4 months of left upper quadrant abdominal pain gets worse with eating. He also notices that there is blood in his stool. He had bright red blood in his stool today. Denies any nausea or vomiting. States that the pain is noticeable while he is eating. The ROS documented in this emergency department record has been reviewed and confirmed by me. Those systems with pertinent positive or negative responses have been documented in the HPI. All other systems are other negative and/or noncontributory. PHYSICAL EXAM: General Impression: Alert and oriented x3, not in acute distress HEENT: Normocephalic atraumatic, extra-ocular movements intact, pupils equal and reactive to light bilaterally, mucous membranes moist. Cardiovascular: Heart regular rate and rhythm Chest: Able to complete full sentences, no retractions, no tachypnea Abdomen: abdomen soft, non-tender, non-distended, no organomegaly Musculoskeletal: Pulses present and equal in all extremities, no peripheral edema Motor: no focal deficits noted Neurological: CN II-XII grossly intact, no focal motor or sensory deficits noted Skin: Intact with no visualized rashes Psych: Normal affect and mood ED course: 76-year-old well-appearing male presents emergency department for left upper quadrant abdominal pain and right foot pain. No concern for DVT. Vital signs upon arrival are within acceptable limits. Nursing notes and chart review was performed Laboratory evaluation obtained. Hemoglobin is 9.9. Slowly been decreasing over the last several months. Metabolic panel shows elevated renal markers concerning for acute kidney injury. Patient given IV fluids. Lonnie blood is positive. Patient given Protonix. X-rays unremarkable for dramatic injuries. There is evidence of significant arthritis. Given abdominal series shows stool burden throughout the colon. Patient given IV fluids. Patient reevaluated bedside 6:55 PM he states that he has been having difficulty urinating. Postvoid residual shows Disposition options were discussed. Patient agreeable for transfer to [facility] for further care. Dr. Cordova is accepting from [facility] ER.Postvoid residual is was 115. no Johnson catheter indicated at this time. Postrenal cause of acute kidney injury is unlikely. My EKG interpretation: Ventricular rate 92, sinus rhythm,. Interval 133, QRS 11, QTC 363. No FL prolongation, no QTC prolongation, no ST or T-wave changes noted. Overall, this EKG is unremarkable - Related Data Home Medications Medication Instructions Recorded Confirmed Diazepam 10 mg PO TID 04/01/14 02/26/21 Atorvastatin [Lipitor] 40 mg PO DAILY 03/30/18 02/26/21 Citalopram Hydrobromide [CeleXA] 40 mg PO DAILY 03/30/18 02/26/21 lisinopriL 40 mg PO DAILY 03/30/18 02/26/21 HYDROcodone/APAP 10-325MG [[place] 1 tab PO QID 02/26/21 02/26/21 10-325] Ibuprofen [Motrin] 800 mg PO BID PRN 02/26/21 02/26/21 Allergies Allergy/AdvReac Type Severity Reaction Status Date / Time No Known Allergies Allergy Verified 03/28/22 18:11 Review of Systems ROS Statement: Those systems with pertinent positive or pertinent negative responses have been documented in the HPI. ROS Other: All systems not noted in ROS Statement are negative. Past Medical History Past Medical History: Hyperlipidemia, Hypertension, Osteoarthritis (OA) Additional Past Medical History / Comment(s): chronic pain, LEFT KNEE INFECTION History of Any Multi-Drug Resistant Organisms: None Reported Past Surgical History: Back Surgery, Orthopedic Surgery Additional Past Surgical History / Comment(s): PAIN CLINIC PROCEDURE, RIGHT RIB REMOVED, nose surgery, L foot, right knee replacment Past Anesthesia/Blood Transfusion Reactions: No Reported Reaction Past Psychological History: No Psychological Hx Reported Smoking Status: Never smoker Past Alcohol Use History: None Reported Past Drug Use History: None Reported - Past Family History Mother Family Medical History: Cancer Brother(s) Family Medical History: Cancer General Exam Limitations: no limitations Course Vital Signs 03/28/22 03/28/22 18:07 20:50 Temperature 99.5 F Pulse Rate 93 85 Respiratory 18 18 Rate Blood Pressure 100/57 116/57 O2 Sat by Pulse 97 98 Oximetry Medical Decision Making - Lab Data Result diagrams: 03/28/22 20:50 03/28/22 20:46 Lab Results 03/28/22 03/28/22 03/28/22 Range/Units 20:46 20:50 20:50 WBC 9.7 (3.8-10.6) k/uL RBC 3.75 L (4.30-5.90) m/uL Hgb 9.9 L (13.0-17.5) gm/dL Hct 32.1 L (39.0-53.0) % MCV 85.6 (80.0-100.0) fL MCH 26.5 (25.0-35.0) pg MCHC 31.0 (31.0-37.0) g/dL RDW 15.0 (11.5-15.5) % Plt Count 304 (150-450) k/uL MPV 7.6 Neutrophils % 66 % Lymphocytes % 20 % Monocytes % 9 % Eosinophils % 3 % Basophils % 0 % Neutrophils # 6.4 (1.3-7.7) k/uL Lymphocytes # 1.9 (1.0-4.8) k/uL Monocytes # 0.9 (0-1.0) k/uL Eosinophils # 0.2 (0-0.7) k/uL Basophils # 0.0 (0-0.2) k/uL Hypochromasia Marked Sodium 140 (137-145) mmol/L Potassium 5.7 H (3.5-5.1) mmol/L Chloride 109 H (98-107) mmol/L Carbon Dioxide 22 (22-30) mmol/L Anion Gap 9 mmol/L BUN 60 H (9-20) mg/dL Creatinine 3.24 H (0.66-1.25) mg/dL Est GFR (CKD-EPI)AfAm 21 (>60 ml/min/1.73 sqM) Est GFR (CKD-EPI)NonAf 18 (>60 ml/min/1.73 sqM) Glucose 111 H (74-99) mg/dL Calcium 9.8 (8.4-10.2) mg/dL Stool Occult Blood Positive (Negative) Disposition Clinical Impression: GI bleed, KELSEA (acute kidney injury) Disposition: OTHER INSTITUTION NOT DEFINED Condition: Fair Referrals: Justin Toure MD [Primary Care Provider] - 1-2 days Time of Disposition: 22:38 - Out of Hospital Transfer - Req. Specs Out of Hospital Transfer - Requested Specifics: Other Emergency Center ([facility])
[2022-03-28 20:54] LABS: Basophils % (A) 0 %; Eosinophils # (A) 0.2 k/uL (0-0.7); Eosinophils % (A) 3 %; HCT 32.1 % (39.0-53.0); HGB 9.9 gm/dL (13.0-17.5); Hypochromasia Marked; Lymphocytes # (A) 1.9 k/uL (1.0-4.8); Lymphocytes % (A) 20 %; MCH 26.5 pg (25.0-35.0); MCV 85.6 fL (80.0-100.0); Mean Platelet Volume 7.6; Monocytes # (A) 0.9 k/uL (0-1.0); Monocytes % (A) 9 %; Neutrophils # (A) 6.4 k/uL (1.3-7.7); Neutrophils % (A) 66 %; Platelet Count 304 k/uL (150-450); RBC 3.75 m/uL (4.30-5.90); WBC 9.7 k/uL (3.8-10.6)
[2022-03-28 21:02] LABS: Calcium 9.8 mg/dL (8.4-10.2); Potassium 5.7 mmol/L (3.5-5.1)
[2022-03-28] MEDS ORDERED: SODIUM CHLORIDE 0.9% 1,000 ML IV STA (21:14)
--- NOTE | 2022-03-28 21:26 | XR ---
EXAMINATION TYPE: XR foot complete RT DATE OF EXAM: 03/28/2022 9:04 PM INDICATION: Patient age:Male; 76 years old; Reason for study: metatarsal pain; COMPARISON: Contralateral side 01/12/2012 TECHNIQUE: The right foot was examined in the AP, oblique, and lateral projections. FINDINGS: Degeneration changes of the right first metatarsophalangeal joint with joint space narrowin g, osteophytes and hallux valgus. No evidence of acute fracture. Mild calcaneal plantar spurring note d. IMPRESSION: 1. No evidence of acute fracture. 2. Moderate to severe degeneration changes most pronounced at the right first metatarsophalangeal kirt int. 3. Right Hallux valgus.
--- NOTE | 2022-03-28 21:27 | XR ---
EXAMINATION TYPE: XR abdomen acute w cxr DATE OF EXAM: 03/28/2022 9:04 PM INDICATION: Patient age:Male; 76 years old; Reason for study: pain; COMPARISON: None. TECHNIQUE: Two radiographic views of the abdomen (upright and supine) and a frontal chest radiograph were obtained. FINDINGS CHEST: Lungs/Pleura: The lungs are clear. There is no evidence of pleural effusion, focal consolidation or p neumothorax. Mediastinum: Unremarkable. Vasculature: Normal. Heart: Normal in size. Musculoskeletal: The osseous structures are intact. Other findings: No significant. Postsurgical changes of the thoracolumbar junction. Hardware appears intact. FINDINGS ABDOMEN: Bowel gas pattern: Normal without dilated loops of small or large bowel. Fecal material and gas are d emonstrated throughout the colon and rectum. Abnormal calcifications: None. Musculoskeletal: Normal. Other: None. IMPRESSION: 1. Large stool burden throughout the colon with a nonobstructive bowel gas pattern. 2. No acute cardiopulmonary process 3. Surgical changes with hardware intact.
[2022-03-28] MEDS ORDERED: MAG HYDROX/AL HYDROX/SIMETH 30 ML, HYOSCYAMINE ELIXIR 10 ML, LIDOCAINE VISCOUS 2% 10 ML PO STA ×3 (21:36)
[2022-03-28] MEDS ORDERED: PANTOPRAZOLE 40 MG/10 ML VIAL IVP STA (21:37)
[2022-03-28 22:41] VITALS: BP 115/72; PULSE 82; RESP 16
== END 2022-03-28 22:43 | disposition other institution (70) ==
LOC: EC 17:43
DX: K92.2 Gastrointestinal hemorrhage, unspecified (principal); N17.9 Acute kidney failure, unspecified; E78.5 Hyperlipidemia, unspecified; I10 Essential (primary) hypertension; M19.90 Unspecified osteoarthritis, unspecified site; Z79.899 Other long term (current) drug therapy
CPT/HCPCS: 51798; 36415; 93005; 80048; 85025; 82272; 74022; 73630; 99285; 96374; 96361; C9113

== ENCOUNTER 2022-12-22 13:30 | Emergency (ER) | payer MEDICARE, OTHER ==
[2022-12-22] MEDS ORDERED: MORPHINE SULFATE 4 MG/ML SYRINGE IVP STA (16:07)
--- NOTE | 2022-12-22 16:09 | ED ---
Extremity Problem HPI - General Chief complaint: Extremity Problem,Nontraumatic Stated complaint: bilat leg pain Source: patient Mode of arrival: ambulatory Limitations: no limitations - History of Present Illness Initial comments: A 77-year-old male presents to the ED with a chief complaint of left calf pain. Patient states for the past week has had pain of his left calf. Patient states pain worse especially with walking. Pain is sharp in nature. Patient is a nonsmoker. No history of DVT or PE in the past. Additionally patient notes right knee pain. States that this is been ongoing for the past 3-4 months. Denies any recent injury or trauma. States [place] at home has not been helping with his pain. Denies chest pain or shortness of breath. No other complaints. - Related Data Home Medications Medication Instructions Recorded Confirmed Diazepam 10 mg PO TID 04/01/14 02/26/21 Atorvastatin [Lipitor] 40 mg PO DAILY 03/30/18 02/26/21 Citalopram Hydrobromide [CeleXA] 40 mg PO DAILY 03/30/18 02/26/21 lisinopriL 40 mg PO DAILY 03/30/18 02/26/21 HYDROcodone/APAP 10-325MG [[place] 1 tab PO QID 02/26/21 02/26/21 10-325] Ibuprofen [Motrin] 800 mg PO BID PRN 02/26/21 02/26/21 Allergies Allergy/AdvReac Type Severity Reaction Status Date / Time No Known Allergies Allergy Verified 12/22/22 13:52 Review of Systems ROS Statement: Those systems with pertinent positive or pertinent negative responses have been documented in the HPI. ROS Other: All systems not noted in ROS Statement are negative. Past Medical History Past Medical History: Hyperlipidemia, Hypertension, Osteoarthritis (OA) Additional Past Medical History / Comment(s): chronic pain, LEFT KNEE INFECTION History of Any Multi-Drug Resistant Organisms: None Reported Past Surgical History: Back Surgery, Orthopedic Surgery Additional Past Surgical History / Comment(s): PAIN CLINIC PROCEDURE, RIGHT RIB REMOVED, nose surgery, L foot, right knee replacment Past Anesthesia/Blood Transfusion Reactions: No Reported Reaction Past Psychological History: No Psychological Hx Reported Smoking Status: Never smoker Past Alcohol Use History: None Reported Past Drug Use History: None Reported - Past Family History Mother Family Medical History: Cancer Brother(s) Family Medical History: Cancer General Exam Limitations: no limitations General appearance: alert, in no apparent distress ENT exam: Present: mucous membranes moist Respiratory exam: Present: normal lung sounds bilaterally Cardiovascular Exam: Present: regular rate, normal rhythm GI/Abdominal exam: Present: soft Extremities exam: Present: other (Negative Homans sign. No pain on squeezing of the left calf. DP/PT pulses 2+. Right knee shows no overlying skin changes. Full active range of motion bilaterally.) Neurological exam: Present: alert, oriented X3 Skin exam: Present: warm, dry Course Vital Signs 12/22/22 12/22/22 13:53 18:40 Temperature 98.7 F 98.1 F Pulse Rate 102 H 71 Respiratory 16 18 Rate Blood Pressure 91/55 149/79 O2 Sat by Pulse 96 97 Oximetry Medical Decision Making - Medical Decision Making Was pt. sent in by a medical professional or institution (, PA, [facility]ACKMAN, urgent care, hospital, or longterm...) When possible be specific @ -No Did you speak to anyone other than the patient for history (EMS, parent, family, police, friend...)? What history was obtained from this source @ -No Did you review nursing and triage notes (agree or disagree)? Why? @ -I reviewed and agree with nursing and triage notes Were old charts reviewed (outside hosp., previous admission, EMS record, old EKG, old radiological studies, urgent care reports/EKG's, longterm records)? Report findings @ -No old charts were reviewed Differential Diagnosis (chest pain, altered mental status, abdominal pain women, abdominal pain men, vaginal bleeding, weakness, fever, dyspnea, syncope, headache, dizziness, GI bleed, back pain, seizure, CVA, palpatations, mental health, musculoskeletal)? @ -Differential Musculoskeletal Muscular strain, contusion, ligament sprain, fracture, arthritis, septic arthritis, bursitis, cellulitis, muscle spasm, nerve compression, DVT, arterial occlusion, herpes zoster, electrolyte abnormality, tumor.... This is not meant to be in all inclusive list EKG interpreted by me (3pts min.). @ -None X-rays interpreted by me (1pt min.). @ -X-ray of the right knee interpreted by me showing changes consistent with arthroplasty which appears intact. No evidence of fracture or other acute finding. CT interpreted by me (1pt min.). @ -None done U/S interpreted by me (1pt. min.). @ -Doppler ultrasound of the left lower extremity interpreted by me showing no evidence of DVT or other acute finding. What testing was considered but not performed or refused? (CT, X-rays, U/S, labs)? Why? @ -None What meds were considered but not given or refused? Why? @ -None Did you discuss the management of the patient with other professionals (professionals i.e. DrTres, PA, RACKMAN, lab, RT, psych nurse, secondary social studies teacher, inspecting machine adjuster, teacher, textile technical officer, counseling case manager)? Give summary @ -No Was smoking cessation discussed for >3mins.? @ -No Was critical care preformed (if so, how long)? @ -No Were there social determinants of health that impacted care today? How? (Homelessness, low income, unemployed, alcoholism, drug addiction, transportation, low edu. Level, literacy, decrease access to med. care, senior living, rehab)? @ -No Was there de-escalation of care discussed even if they declined (Discuss DNR or withdrawal of care, Hospice)? DNR status @ -No What co-morbidities impacted this encounter? (DM, HTN, Smoking, COPD, CAD, Cancer, CVA, ARF, Chemo, Hep., AIDS, mental health diagnosis, sleep apnea, morbid obesity)? @ -None Was patient admitted / discharged? Hospital course, mention meds given and route, prescriptions, significant lab abnormalities, going to OR and other pertinent info. @ -Discharge 77-year-old male presenting with 1 week of left calf pain/with ambulation and 3 months of right knee pain. Imaging studies here showed no evidence of acute finding. Patient discharged home in stable condition. Advised follow-up with his PCP. Discussed return precautions with patient who verbalizes agreement. Undiagnosed new problem with uncertain prognosis? @ -No Drug Therapy requiring intensive monitoring for toxicity (Heparin, Nitro, Insulin, Cardizem)? @ -No Were any procedures done? @ -No Diagnosis/symptom? @ -Calf pain, right knee pain Acute, or Chronic, or Acute on Chronic? @ -Acute, acute on chronic Uncomplicated (without systemic symptoms) or Complicated (systemic symptoms)? @ -Uncomplicated Side effects of treatment? @ -No Exacerbation, Progression, or Severe Exacerbation? @ -No Poses a threat to life or bodily function? How? (Chest pain, [place], [place], pneumonia, PE, COPD, DKA, ARF, appy, cholecystitis, CVA, Diverticulitis, Homicidal, Suicidal, threat to staff... and all critical care pts) @ -No Disposition Clinical Impression: Calf pain, Right knee pain Disposition: HOME SELF-CARE Condition: Good Additional Instructions: Please return to the Emergency Department if symptoms worsen or any other concerns. Follow up with her PCP. Motrin and Tylenol as needed for pain. Is patient prescribed a controlled substance at d/c from ED?: No Referrals: Justin Toure MD [Primary Care Provider] - 1-2 days Time of Disposition: 18:59
[2022-12-22] MEDS ORDERED: MORPHINE SULFATE 4 MG/ML SYRINGE IM STA (17:02)
--- NOTE | 2022-12-22 17:13 | US ---
EXAMINATION TYPE: US venous doppler duplex LE LT DATE OF EXAM: 12/22/2022 4:44 PM COMPARISON: NONE, RLEV 07/18/2021 CLINICAL INDICATION: Male, 77 years old with history of r/o DVT; No hx of DVT. Patient does not take blood thinners. Left leg pain intermittently x 4 months, pain has been worse x 2 weeks. SIDE PERFORMED: Left TECHNIQUE: The lower extremity deep venous system is examined utilizing real time linear array sonog [employer] with graded compression, doppler sonography and color-flow sonography. VESSELS IMAGED: Common Femoral Vein Deep Femoral Vein Greater Saphenous Vein * Femoral Vein Popliteal Vein Small Saphenous Vein * Proximal Calf Veins (* superficial vessels) Left Leg: No evidence of DVT. IMPRESSION: No evidence for deep vein tendinosis of the left lower externally.
--- NOTE | 2022-12-22 18:17 | XR ---
EXAMINATION TYPE: XR knee complete RT DATE OF EXAM: 12/22/2022 5:51 PM CLINICAL INDICATION:Male, 77 years old with history of r knee pain; [facility] COMPARISON: 08/02/2014. TECHNIQUE: The Right knee(s) was examined in Frontal, lateral and oblique projections. FINDINGS: Status post total knee arthroplasty changes with hardware in appropriate alignment and in tact. No evidence of fracture. IMPRESSION: Status post total knee arthroplasty changes with hardware intact and appropriate alignment. No fractu res identified.
[2022-12-22 18:48] VITALS: BP 149/79; PULSE 71; RESP 18; TEMP 98.1
== END 2022-12-22 19:13 | disposition home or self-care (01) ==
LOC: EC 13:30
DX: M25.561 Pain in right knee (principal); M79.662 Pain in left lower leg; E78.5 Hyperlipidemia, unspecified; I10 Essential (primary) hypertension; M19.90 Unspecified osteoarthritis, unspecified site; Z79.899 Other long term (current) drug therapy
CPT/HCPCS: 73562; 93971; 99284; 96372; J2270

== ENCOUNTER → 2022-12-23 | Outpatient (CLI) | payer MEDICARE, OTHER ==
--- NOTE | 2022-12-23 13:26 | CT ---
EXAMINATION TYPE: CT brain wo con DATE OF EXAM: 12/23/2022 COMPARISON: None available. HISTORY: Memory loss. CT DLP: 1269 mGycm Automated exposure control for dose reduction was used. FINDINGS: There is no acute intracranial hemorrhage, mass, mass effect, midline shift, extra-axial fluid collec tion or hydrocephalus. The cobb-white distinction is intact without evidence of an acute major vessel infarct. There is a mucous retention cyst or polyp within the right maxillary sinus. The visualized paranasal sinuses and mastoid air cells are otherwise clear. IMPRESSION: NO ACUTE OR CHRONIC FINDINGS IDENTIFIED.
== END | disposition home or self-care (01) ==
LOC: RADCTMAIN 12:57
PROVIDERS: ATTEND Family Medicine
DX: G89.29 Other chronic pain (principal); R41.3 Other amnesia
CPT/HCPCS: 70450

== ENCOUNTER 2023-01-06 16:36 | Emergency (ER) | payer MEDICARE, OTHER ==
[2023-01-06 17:05] VITALS: TEMP 98.2
--- NOTE | 2023-01-06 20:02 | ED ---
General Adult HPI - General Chief complaint: Recheck/Abnormal Lab/Rx Stated complaint: Med Refill Time Seen by Provider: 01/06/23 18:13 Source: patient Mode of arrival: ambulatory Limitations: no limitations - History of Present Illness Initial comments: 77-year-old man with past medical history of chronic back and knee pain who presents to the emergency department requesting medication refill. States that he used to see Dr. Stafford for pain management. He is retiring and patient has yet to find a new pain management doctor. Dr. Stafford did prescribe him 3 months worth of his [place] at his last appointment so that he would have enough in order to find a new doctor. Patient states he has one more month worth of the medication and is attempting to find a new doctor. He went to fill his prescription today and the pharmacist told him that they did not have any [place] in stock. Patient was requesting that the prescription be transferred however t charlesy told him they couldn't do that. Patient was unsure of where to obtain a new prescription and therefore came to the emergency department for evaluation. He denies any changes in his chronic pain. No new injuries. Patient only requesting medication refill - Related Data Home Medications Medication Instructions Recorded Confirmed Diazepam 10 mg PO TID 04/01/14 02/26/21 Atorvastatin [Lipitor] 40 mg PO DAILY 03/30/18 02/26/21 Citalopram Hydrobromide [CeleXA] 40 mg PO DAILY 03/30/18 02/26/21 lisinopriL 40 mg PO DAILY 03/30/18 02/26/21 HYDROcodone/APAP 10-325MG [[place] 1 tab PO QID 02/26/21 02/26/21 10-325] Ibuprofen [Motrin] 800 mg PO BID PRN 02/26/21 02/26/21 Allergies Allergy/AdvReac Type Severity Reaction Status Date / Time No Known Allergies Allergy Verified 01/06/23 17:02 Review of Systems ROS Statement: Those systems with pertinent positive or pertinent negative responses have been documented in the HPI. ROS Other: All systems not noted in ROS Statement are negative. Past Medical History Past Medical History: Hyperlipidemia, Hypertension, Osteoarthritis (OA) Additional Past Medical History / Comment(s): chronic pain, LEFT KNEE INFECTION History of Any Multi-Drug Resistant Organisms: None Reported Past Surgical History: Back Surgery, Orthopedic Surgery Additional Past Surgical History / Comment(s): PAIN CLINIC PROCEDURE, RIGHT RIB REMOVED, nose surgery, L foot, right knee replacment Past Anesthesia/Blood Transfusion Reactions: No Reported Reaction Past Psychological History: No Psychological Hx Reported Smoking Status: Never smoker Past Alcohol Use History: None Reported Past Drug Use History: None Reported - Past Family History Mother Family Medical History: Cancer Brother(s) Family Medical History: Cancer General Exam Limitations: no limitations General appearance: alert, in no apparent distress Head exam: Present: atraumatic, normocephalic, normal inspection Eye exam: Present: normal appearance, PERRL, EOMI. Absent: scleral icterus, conjunctival injection, periorbital swelling ENT exam: Present: normal exam, mucous membranes moist Neck exam: Present: normal inspection. Absent: tenderness, meningismus, lymphadenopathy Respiratory exam: Present: normal lung sounds bilaterally. Absent: respiratory distress, wheezes, rales, rhonchi, stridor Cardiovascular Exam: Present: regular rate, normal rhythm, normal heart sounds. Absent: systolic murmur, diastolic murmur, rubs, gallop, clicks GI/Abdominal exam: Present: soft, normal bowel sounds. Absent: distended, tenderness, guarding, rebound, rigid Extremities exam: Present: normal inspection, full ROM, normal capillary refill, other (Well-healed surgical incision over her right knee which does have some bony tenderness). Absent: tenderness, pedal edema, joint swelling, calf tenderness Back exam: Present: normal inspection Neurological exam: Present: alert, oriented X3, CN II-XII intact Psychiatric exam: Present: normal affect, normal mood Skin exam: Present: warm, dry, intact, normal color. Absent: rash Course Vital Signs 01/06/23 01/06/23 17:00 20:30 Temperature 98.2 F Pulse Rate 63 77 Respiratory 20 16 Rate Blood Pressure 151/68 154/77 O2 Sat by Pulse 96 98 Oximetry Medical Decision Making - Medical Decision Making Was pt. sent in by a medical professional or institution (, PA, LIQUOR TESTER, urgent care, hospital, or fpc...) When possible be specific @ -No Did you speak to anyone other than the patient for history (EMS, parent, family, police, friend...)? What history was obtained from this source @ -No Did you review nursing and triage notes (agree or disagree)? Why? @ -I reviewed and agree with nursing and triage notes Were old charts reviewed (outside hosp., previous admission, EMS record, old EKG, old radiological studies, urgent care reports/EKG's, fpc records)? Report findings @ -No old charts were reviewed Differential Diagnosis (chest pain, altered mental status, abdominal pain women, abdominal pain men, vaginal bleeding, weakness, fever, dyspnea, syncope, headache, dizziness, GI bleed, back pain, seizure, CVA, palpatations, mental health, musculoskeletal)? @ -Differential Musculoskeletal Muscular strain, contusion, ligament sprain, fracture, arthritis, septic arthritis, bursitis, cellulitis, muscle spasm, nerve compression, DVT, arterial occlusion, herpes zoster, electrolyte abnormality, tumor.... This is not meant to be in all inclusive list EKG interpreted by me (3pts min.). @ -Not completed X-rays interpreted by me (1pt min.). @ -None done CT interpreted by me (1pt min.). @ -None done U/S interpreted by me (1pt. min.). @ -None done What testing was considered but not performed or refused? (CT, X-rays, U/S, labs)? Why? @ -None What meds were considered but not given or refused? Why? @ -None Did you discuss the management of the patient with other professionals (professionals i.e. , PA, LIQUOR TESTER, lab, RT, psych nurse, social media developer, aircraft engine technician, teacher, executive officer, shoe caser)? Give summary @ -No Was smoking cessation discussed for >3mins.? @ -No Was critical care preformed (if so, how long)? @ -No Were there social determinants of health that impacted care today? How? (Homelessness, low income, unemployed, alcoholism, drug addiction, transportation, low edu. Level, literacy, decrease access to med. care, snf, rehab)? @ -No Was there de-escalation of care discussed even if they declined (Discuss DNR or withdrawal of care, Hospice)? DNR status @ -No What co-morbidities impacted this encounter? (DM, HTN, Smoking, COPD, CAD, Cancer, CVA, ARF, Chemo, Hep., AIDS, mental health diagnosis, sleep apnea, morbid obesity)? @ -Chronic pain Was patient admitted / discharged? Hospital course, mention meds given and route, prescriptions, significant lab abnormalities, going to OR and other pertinent info. @ -Upon arrival patient was placed into room 33. Thorough history and physical exam was performed. Patient does have an active prescription however is unable to obtain as the pharmacy does not have the medications talk. Patient is unsure when this medication may be obtained. He does see a pain management doctor however this doctor has retired and therefore he is no longer in a pain contract with this physician. Due to the patient's current circumstances I did agree to write him 3 days as this is what my license allows. Hopefully the pharmacy will be able to get his prescription in stock by that time. I did provide him with a list of pain management doctors as he is requesting specialists in the [place] area and I did give the patient a couple recommendations. At this time the patient will be discharged home. He is given a paper prescription as he is unsure which pharmacy will fill his prescription. I did warn him that it may be possible that they will not accept a paper prescription. Patient understood this and was discharged in stable condition Undiagnosed new problem with uncertain prognosis? @ -No Drug Therapy requiring intensive monitoring for toxicity (Heparin, Nitro, Insulin, Cardizem)? @ -No Were any procedures done? @ -No Diagnosis/symptom? @ -Chronic back and knee pain Acute, or Chronic, or Acute on Chronic? @ -Chronic Uncomplicated (without systemic symptoms) or Complicated (systemic symptoms)? @ -Uncomplicated Side effects of treatment? @ -No Exacerbation, Progression, or Severe Exacerbation? @ -No Poses a threat to life or bodily function? How? (Chest pain, USA, [place], pneumonia, PE, COPD, DKA, ARF, appy, cholecystitis, CVA, Diverticulitis, Homicidal, Suicidal, threat to staff... and all critical care pts) @ -No Disposition Clinical Impression: Chronic back pain Disposition: HOME SELF-CARE Condition: Stable Instructions (If sedation given, give patient instructions): Narcotic- Analgesic/Acetaminophen (By mouth) Additional Instructions: Please take the medications as directed and follow-up with pain management for further refills Is patient prescribed a controlled substance at d/c from ED?: No Referrals: Justin Toure MD [Primary Care Provider] - 1-2 days Leandro Brooks MD [REFERRING] - 1-2 days Remigio Paulson MD [REFERRING] - 1-2 days Alirio Barboza MD [REFERRING] - 1-2 days Time of Disposition: 19:58
[2023-01-06 20:35] VITALS: BP 154/77; PULSE 77; RESP 16
== END 2023-01-06 20:31 | disposition home or self-care (01) ==
LOC: EC 16:36
DX: G89.29 Other chronic pain (principal); M54.9 Dorsalgia, unspecified; M25.561 Pain in right knee; E78.5 Hyperlipidemia, unspecified; I10 Essential (primary) hypertension; M19.90 Unspecified osteoarthritis, unspecified site; Z79.899 Other long term (current) drug therapy
CPT/HCPCS: 99283

== ENCOUNTER → 2023-03-09 | Outpatient (CLI) | payer MEDICARE, OTHER ==
--- NOTE | 2023-03-09 12:57 | XR ---
EXAMINATION TYPE: XR knee 4V LT DATE OF EXAM: 03/09/2023 CLINICAL HISTORY: pain TECHNIQUE: Three views of the left knee are obtained. Patellar sunrise view also obtained. COMPARISON: None. FINDINGS: There is no acute fracture/dislocation. The tri-compartment joint spaces appear within no rmal limits. The overlying soft tissue appears unremarkable. 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 IMPRESSION: There is no acute fracture or dislocation ICD 10 NO FRACTURE, INITIAL EVALUATION
== END | disposition home or self-care (01) ==
LOC: RADXRMAIN 12:22
PROVIDERS: ATTEND Family Medicine
DX: M25.562 Pain in left knee (principal)

== ENCOUNTER 2024-09-12 18:55 | Emergency (ER) | payer MEDICARE ==
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
[2024-09-12 19:40] VITALS: RESP 18
[2024-09-12] MEDS: SODIUM CHLORIDE 0.9% 1,000 ML IV ONE (19:55)
[2024-09-12 20:04] LABS: Basophils # (A) 0.03 10*3/uL (0.00-0.10); Basophils % (A) 0.3 %; Eosinophils # (A) 0.12 10*3/uL (0.04-0.35); Eosinophils % (A) 1.3 %; HGB 12.7 g/dL (13.0-17.0); Lymphocytes % (A) 12.3 %; MCH 30.6 pg (27.0-32.0); MCHC 34.3 g/dL (32.0-37.0); MCV 89.2 fL (80.0-97.0); Mean Platelet Volume 8.8 fL (9.5-12.2); Monocytes # (A) 0.97 10*3/uL (0.20-1.00); Monocytes % (A) 10.9 %; Neutrophils # (A) 6.71 10*3/uL (1.80-7.70); Neutrophils % (A) 75.1 %; Platelet Count 253 10*3/uL (140-440); RBC 4.15 10*6/uL (4.40-5.60); RDW 12.7 % (11.5-14.5); WBC 8.94 10*3/uL (4.50-10.00)
[2024-09-12 20:26] LABS: ALT 13 U/L (4-49); AST 28 U/L (17-59); African American GFR (CKD) 46 (>60 ml/min/1.73 sqM); Alkaline Phosphatase 108 U/L (38-126); Anion Gap 10 mmol/L; Blood Urea Nitrogen 31 mg/dL (9-20); Calcium 10.9 mg/dL (8.4-10.2); Carbon Dioxide 20 mmol/L (22-30); Chloride 107 mmol/L (98-107); Glucose 104 mg/dL (74-99); Magnesium 1.4 mg/dL (1.6-2.3); Non-African American GFR(CKD) 40 (>60 ml/min/1.73 sqM); Potassium 4.6 mmol/L (3.5-5.1); Sodium 137 mmol/L (137-145); Total Bilirubin 0.7 mg/dL (0.2-1.3); Total Protein 6.8 g/dL (6.3-8.2)
[2024-09-12] MEDS: MAGNESIUM OXIDE 400 MG TAB PO STA (21:17)
[2024-09-12 21:23] VITALS: PULSE 76
[2024-09-12 21:42] VITALS: BP 126/71; TEMP 98.5
== END 2024-09-12 21:37 | disposition home or self-care (01) ==
LOC: EC 18:55
DX: E83.42 Hypomagnesemia (principal); R42 Dizziness and giddiness; Z87.891 Personal history of nicotine dependence
CPT/HCPCS: 36415; 80053; 83605; 83735; 85025; 93005; 96360; 99284